=== PATIENT | female | born 1935 | race Caucasian/White ===

== ENCOUNTER 2022-03-30 13:54 | Emergency (ER) | payer MEDICARE, BC ==
[2022-03-30 13:58] VITALS: BP 127/45
[2022-03-30] MEDS ORDERED: Lidocaine 1% with EPINEPHrine 1:100,000 50 ML MDV ONE (14:11)
[2022-03-30] MEDS ORDERED: Lidocaine 1% with EPINEPHrine 1:100,000 10 ML MDV INJECT ONE (14:30)
[2022-03-30 15:52] VITALS: PULSE 78
== END 2022-03-30 14:53 | disposition home or self-care (01) ==
LOC: MW.ED 13:54
DX: S01.01XA Laceration without foreign body of scalp, initial encounter (principal); E78.00 Pure hypercholesterolemia, unspecified; I10 Essential (primary) hypertension; K21.9 Gastro-esophageal reflux disease without esophagitis; M19.90 Unspecified osteoarthritis, unspecified site; E66.9 Obesity, unspecified; Z68.36 Body mass index [BMI] 36.0-36.9, adult; Z79.899 Other long term (current) drug therapy; W01.198A Fall on same level from slipping, tripping and stumbling with subsequent striking against other object, initial encounter; Y92.512 Supermarket, store or market as the place of occurrence of the external cause
CPT/HCPCS: 12002; 99283

== ENCOUNTER 2022-09-15 05:04 | Inpatient (IN) | payer MEDICARE, BC ==
[2022-09-15] MEDS ORDERED: Sodium Chloride 0.9% 10 ML Syringe FLUSH PRN (05:16)
[2022-09-15] MEDS ORDERED: Sodium Chloride 0.9% 2.5 ML Syringe FLUSH PRN (05:16)
[2022-09-15] MEDS ORDERED: Ketorolac 30 MG/ML SDV IVPUSH ONE (05:45)
[2022-09-15 06:10] LABS: CARBON DIOXIDE,CO2 25.8 mmol/L (21.0-32.0); POTASSIUM,K 3.5 mmol/L (3.5-5.1)
[2022-09-15] MEDS ORDERED: Iopamidol 755 MG/ML 500 ML Multipack Bottle IVPUSH ONE (07:40)
[2022-09-15] MEDS ORDERED: Heparin Sodium 5,000 Units/ML Vial IVPUSH ONE (09:34)
[2022-09-15] MEDS ORDERED: Heparin Sodium/0.45% NaCl 500 ML IV SCH (09:45)
[2022-09-15] MEDS: Enoxaparin 100 MG/1 ML Syringe SUBCUT SCH ×2 (09:51→21:35)
[2022-09-15] MEDS ORDERED: Ondansetron 4 MG Tab.DIS PO PRN (11:28)
[2022-09-15] MEDS ORDERED: Docusate Sodium 100 MG Cap PO PRN (11:28)
[2022-09-15] MEDS ORDERED: Temazepam 15 MG Cap PO PRN ×2 (11:28→22:23)
[2022-09-15] MEDS ORDERED: Acetaminophen 325 MG Tab PO PRN (11:28)
[2022-09-15] MEDS ORDERED: Magnesium Hydroxide 400 MG/5 ML Susp 30 ML Cup PO PRN (11:28)
[2022-09-15] MEDS ORDERED: Diatrizoate Meglumine/Diatrizoate Sodium 37% 30 ML Bottle PO ONE (12:07)
[2022-09-15] MEDS: buPROPion 150 MG Tab.ER PO SCH (13:32)
[2022-09-15] MEDS: Losartan 50 MG Tab PO SCH (13:32)
[2022-09-15] MEDS ORDERED: Omeprazole 20 MG Cap.CR PO SCH (21:00)
[2022-09-16 06:41] LABS: CARBON DIOXIDE,CO2 25.9 mmol/L (21.0-32.0); POTASSIUM,K 3.5 mmol/L (3.5-5.1)
[2022-09-16 07:38] VITALS: PULSE 68
[2022-09-16] MEDS: Losartan 50 MG Tab PO SCH (08:56)
[2022-09-16] MEDS: buPROPion 150 MG Tab.ER PO SCH (08:59)
[2022-09-16] MEDS ORDERED: atorvaSTATin 20 MG Tab PO SCH (09:00)
[2022-09-16] MEDS ORDERED: FLUoxetine 20 MG Cap PO SCH (09:00)
[2022-09-16] MEDS ORDERED: Apixaban 5 MG Tab PO SCH (09:00)
[2022-09-16] MEDS ORDERED: RANITIDINE HCL 150 MG PO SCH (09:00)
[2022-09-16 11:33] VITALS: BP 143/67
[2022-09-23] MEDS ORDERED: Apixaban 5 MG Tab PO SCH (09:00)
== END 2022-09-16 12:04 | disposition home or self-care (01) | DRG 176 ==
LOC: MW.ED 05:04 → MW.MS 09:25
PROVIDERS: ADMIT Internal Medicine; ATTEND Internal Medicine
DX: I26.94 Multiple subsegmental thrombotic pulmonary emboli without acute cor pulmonale (principal); N83.201 Unspecified ovarian cyst, right side; H54.7 Unspecified visual loss; E78.00 Pure hypercholesterolemia, unspecified; K21.9 Gastro-esophageal reflux disease without esophagitis; M19.90 Unspecified osteoarthritis, unspecified site; F32.A Depression, unspecified; E66.9 Obesity, unspecified; I10 Essential (primary) hypertension; Z96.653 Presence of artificial knee joint, bilateral; E78.5 Hyperlipidemia, unspecified; L40.9 Psoriasis, unspecified; R01.1 Cardiac murmur, unspecified; Z90.710 Acquired absence of both cervix and uterus; Z90.49 Acquired absence of other specified parts of digestive tract; Z68.33 Body mass index [BMI] 33.0-33.9, adult
CPT/HCPCS: 36415; 71045; 71045-26; 71275; 71275-26; 74176; 74176-26; 76830; 76830-26; 80048; 80053; 82378; 82550; 84484; 85025; 85027; 85379; 86304; 93005; 93010; 93306; 96372; 96374; 99285; 99285-25; A9270-GY; J1650; J1885; J3490; Q9963; Q9967